=== PATIENT | female | born 1955 | race Caucasian/White ===

== ENCOUNTER → 2018-05-05 | Outpatient (CLI) | payer BC | LOC: MC.RAD 09:36 | DX: N63.11 Unspecified lump in the right breast, upper outer quadrant (principal) ==

== ENCOUNTER 2018-06-17 06:35 | Day surgery (SDC) | payer BC ==
[~2018-06-17] VITALS: Ht 160 cm; Wt 73.8 kg
[2018-06-17 08:09] VITALS: BP 126/56; PULSE 66; TEMP 98.4
[2018-06-17] MEDS ORDERED: HCTZ 25MG TAB25 MG PO (08:30)
[2018-06-17] MEDS ORDERED: TIROSINT50 MC1 PO (08:31)
[2018-06-17] MEDS ORDERED: EFFEXOR XR75 MG/CAP PO (08:32)
[2018-06-17] MEDS ORDERED: THE MEDICINE S200 M2 PO (08:32)
[2018-06-17] MEDS ORDERED: CRESTOR5 MG PO (08:32)
[2018-06-17] MEDS ORDERED: CHROMIUM PICOLI1 TA8 PO (08:56)
[2018-06-17] MEDS ORDERED: MELATONIN5 M1 PO (08:56)
[2018-06-17] MEDS ORDERED: BENADRYL25 M2 PO (08:57)
[2018-06-17] MEDS ORDERED: VITAMIN B-1000 MCG/T PO (08:58)
[2018-06-17] MEDS ORDERED: NORCO 325 MG-7.1 TAB PO (08:58)
[2018-06-17] MEDS ORDERED: ADVIL200 MG PO (08:59)
[2018-06-17] MEDS ORDERED: ZANTAC 7575 MG (09:01)
[2018-06-17] MEDS ORDERED: EPIPEN 2-PAK1 MG/ML IM (09:02)
[2018-06-17] MEDS ORDERED: NEXIUM 40MG40 MG PO (09:02)
[2018-06-17] MEDS ORDERED: ZANTAC 150MG T150 MG PO (09:03)
--- NOTE | 2018-06-17 09:05 | NUR ---
Initial visit; Patient thanked Stretcher Drier Operator for looking in on her and was receptive to having Stretcher Drier Operator keep her in Stretcher Drier Operator's prayers.
[2018-06-17] MEDS ORDERED: NORCO 325 MG-51 TAB PO (14:34)
[2018-06-17 14:45] VITALS: BP 145/68; PULSE 73; TEMP 97.6
--- NOTE | 2018-06-17 14:45 | NUR ---
TO RM 7 PER CART FROM PACU. ALERT ORIENTED X 3, TALKING TO FAMILY AND STAFF. C/O PAIN 06/27. O2 98% ON 2L. IV PATENT. NO REDNESS OR SWELLING. RECEIVED ICE WATER.
[2018-06-17 14:56] VITALS: TEMP 97.3
[2018-06-17 15:00] VITALS: BP 143/65; PULSE 76
--- NOTE | 2018-06-17 15:00 | NUR ---
PATIENT MORE AWAKE AND TALKING WITH FAMILY. DRINKING WATER AND TOLERATED WELL. DISCONTINUED IV AND INT- CATHETER INTACT.
[2018-06-17 15:15] VITALS: BP 150/66; PULSE 76
--- NOTE | 2018-06-17 15:15 | NUR ---
RECEIVED MUFFIN AND DIET PEPSI PAIN STILL /. "UNDER ARMPIT" AND DENIES PAIN ANYWHERE ELSE. DRESSINGS CLEAN DRY INTACT OVER INCISIONS.
[2018-06-17 15:30] VITALS: BP 139/56; PULSE 79
--- NOTE | 2018-06-17 15:30 | NUR ---
RECEIVED 2ND DIET PEPSI AND CHICKEN NOODLE SOUP/CRACKERS.
--- NOTE | 2018-06-17 16:00 | NUR ---
UP AMBULATED TO BATHROOM. VOIDED AND TOLERATED WELL.
--- NOTE | 2018-06-17 16:25 | NUR ---
RECEIVED DISCHARGE INSTRUCTIONS AND VERBALIZED UNDERSTANDING. FAMILY AT BEDSIDE AT TO HEAR DISCHARGE INSTRUCTIONS DISCONTINUED IV AND INT- CATHETER INTACT.
--- NOTE | 2018-06-17 16:40 | NUR ---
DISCHARGED PER WC BY NURSING STAFF TO PRIVATE CAR IN CARE OF - PATTI
== END 2018-06-17 16:57 | disposition home or self-care (01) ==
LOC: SDCO 06:35
DX: C50.111 Malignant neoplasm of central portion of right female breast (principal); C50.411 Malignant neoplasm of upper-outer quadrant of right female breast; Z17.0 Estrogen receptor positive status [ER+]; Z79.899 Other long term (current) drug therapy; F17.210 Nicotine dependence, cigarettes, uncomplicated; E78.00 Pure hypercholesterolemia, unspecified; K21.9 Gastro-esophageal reflux disease without esophagitis; E03.9 Hypothyroidism, unspecified; M79.7 Fibromyalgia; G89.29 Other chronic pain; M54.2 Cervicalgia
CPT/HCPCS: A9541; C1788; J0690; J1100; J1644; J2250; J2405; J2704; J3010; J7120